=== PATIENT | female | born 1945 | race Caucasian/White ===

== ENCOUNTER 2021-05-27 13:47 | Emergency (ER) | payer MEDICARE ==
[~2021-05-27] VITALS: Ht 154.9 cm; Wt 58.0 kg
== END 2021-05-27 15:34 | disposition home or self-care (01) ==
LOC: ER 13:48
DX: U07.1 COVID-19 (principal); Z87.81 Personal history of (healed) traumatic fracture
CPT/HCPCS: 87635; 99283; C9803